=== PATIENT | female | born 1960 | race Hispanic/Latino ===

== ENCOUNTER 2017-10-16 12:50 | Inpatient (IN) | payer BC ==
[~2017-10-16] VITALS: Ht 172.7 cm; Wt 72.0 kg
[2017-10-16 13:05] LABS: BASOPHILS % (AUTO) 0.9 % (0.0-5.0); EOSINOPHILS % (AUTO) 1.1 % (0.0-8.0); HEMATOCRIT 22.9 % (36-48); LYMPHOCYTES % (AUTO) 14.4 % (21.0-51.0); MEAN CORPUSCULAR HEMOGLOBIN 39.7 pg (27.0-33.0); MEAN CORPUSCULAR HGB CONC 36.2 g/dL (32.0-36.0); MEAN CORPUSCULAR VOLUME 109.7 fL (79-99); MONOCYTES % (AUTO) 8.6 % (3.0-13.0); PLATELET COUNT (AUTO) 240 K/uL (130-400); RED BLOOD CELL COUNT(AUTO) 2.08 MIL/uL (4.00-5.50); RED CELL DISTRIBUTION WIDTH 16.1 % (11.0-15.5); WHITE BLOOD COUNT (AUTO) 10.5 K/uL (4.8-10.8)
[2017-10-16 13:13] LABS: CARBON DIOXIDE 23 mmol/L (21-32); CHLORIDE 99 mmol/L (101-111); CREATININE 1.6 mg/dL (0.5-1.5); GLOMERULAR FILTR. RATE CALC 35 mL/min (>60); GLUCOSE,RANDOM 225 mg/dL (70-105); POTASSIUM 3.6 mmol/L (3.5-5.1); SODIUM SERUM 132 mmol/L (136-145); UREA NITROGEN, BLOOD 12 mg/dL (7-18)
[2017-10-16 13:18] LABS: ALANINE AMINOTRANSFERASE 76 U/L (12-78); ALBUMIN 2.5 g/dL (3.5-5.0); ASPARTATE AMINOTRANSFERASE 136 U/L (10-37); BILIRUBIN,TOTAL 6.3 mg/dL (0.2-1.0); TOTAL PROTEIN, SERUM 6.4 g/dL (6.0-8.3)
[2017-10-16 13:32] LABS: AMMONIA < 10 umol/L (11-32)
[2017-10-16] MEDS ORDERED: CEFTRIAXONE SODIUM 2 GM VIAL ONE (13:37)
[2017-10-16] MEDS ORDERED: LACTULOSE 20 GM/30 ML UDCUP ONE ×2 (13:40→21:16)
[2017-10-16] MEDS ORDERED: SODIUM CHLORIDE 0.9% 100 ML IV ONE (13:40)
[2017-10-16 13:55] LABS: INR 1.66 (0.85-1.15); PARTIAL THROMBOPLASTIN TIME 28.5 SEC (26.3-35.5); PROTHROMBIN TIME 17.3 SEC (9.6-11.6)
[2017-10-16] MEDS ORDERED: ALBUMIN (HUMAN) 25% 100 ML IV ONE (14:03)
[2017-10-16 14:14] LABS: APPEARANCE,URINE Clear (CLEAR); BILIRUBIN,URINE Negative (NEGATIVE); COLOR,URINE Yellow (YELLOW); GLUCOSE, URINE (UA) Negative (NEGATIVE); KETONES,URINE Negative (NEGATIVE); LEUKOCYTE ESTERASE ,URINE Negative (NEGATIVE); NITRATE,URINE Negative (NEGATIVE); OCCULT BLOOD,URINE Negative (NEGATIVE); PH,URINE 6.5 (5.0-8.0); PROTEIN,URINE Negative (NEGATIVE); UROBILINOGEN,URINE 0.2 mg/dL (0.2-1.0)
[2017-10-16] MEDS ORDERED: SODIUM CHLORIDE 0.9% 1000ML 1,000 ML IV SCH (16:29)
[2017-10-16] MEDS ORDERED: MAG HYDROX/AL HYDROX/SIMETH ES 30 ML SUSP UDCUP PO PRN (16:30)
[2017-10-16] MEDS ORDERED: ONDANSETRON HCL 4 MG/2 ML VIAL IV PRN (16:30)
[2017-10-16] MEDS ORDERED: GUAIFENESIN-DM 200/20 MG 10 ML PO PRN (16:30)
[2017-10-16 17:30] VITALS: BP 117/63
[2017-10-16 19:10] VITALS: BP 105/60
[2017-10-16] MEDS ORDERED: FURO40TA5 PO (19:39)
[2017-10-16] MEDS ORDERED: ZOLP12.52 PO (19:39)
[2017-10-16] MEDS ORDERED: ERGO500014 PO (19:39)
[2017-10-16] MEDS ORDERED: PROP10TA10 PO (19:39)
[2017-10-16] MEDS ORDERED: POTA20PA32 PO (19:39)
[2017-10-16] MEDS ORDERED: ACET-66 PO (19:39)
[2017-10-16] MEDS ORDERED: SPIR100T3 PO (19:39)
[2017-10-16] MEDS ORDERED: PANT20TA12 PO (19:39)
[2017-10-16] MEDS ORDERED: FERR325T22 PO (19:39)
[2017-10-16] MEDS ORDERED: RIFA550T PO (19:39)
[2017-10-16] MEDS ORDERED: LACT10SO8 PO (19:39)
[2017-10-16] MEDS ORDERED: SODIUM CHLORIDE 0.9% 1000ML 1,000 ML IV ONE (21:17)
[2017-10-16 23:30] VITALS: BP 111/60
[2017-10-17] MEDS ORDERED: MORPHINE SULFATE 2 MG/ML 1ML SYG IVP PRN (02:30)
[2017-10-17] MEDS ORDERED: MORPHINE SULFATE 8 MG/ML VIAL ONE (02:31)
[2017-10-17 03:54] LABS: MEAN CORPUSCULAR HEMOGLOBIN 38.9 pg (27.0-33.0); MEAN CORPUSCULAR HGB CONC 35.5 g/dL (32.0-36.0); MEAN CORPUSCULAR VOLUME 109.3 fL (79-99); PLATELET COUNT (AUTO) 219 K/uL (130-400); RED BLOOD CELL COUNT(AUTO) 1.84 MIL/uL (4.00-5.50); RED CELL DISTRIBUTION WIDTH 16.1 % (11.0-15.5); WHITE BLOOD COUNT (AUTO) 8.4 K/uL (4.8-10.8)
[2017-10-17 03:56] VITALS: BP 102/54
[2017-10-17 04:04] LABS: HEMATOCRIT 20.1 % (36-48)
[2017-10-17 04:21] LABS: ALBUMIN 2.5 g/dL (3.5-5.0); CREATININE 1.4 mg/dL (0.5-1.5); POTASSIUM 3.2 mmol/L (3.5-5.1); THYROID STIMULATING HORMONE 3.25 uIU/mL (0.36-3.74); TOTAL PROTEIN, SERUM 5.8 g/dL (6.0-8.3)
[2017-10-17 04:30] LABS: HEMOGLOBIN A1C 3.6 % (4.0-6.0)
[2017-10-17] MEDS ORDERED: MEROPENEM 500MG+NS 50ML 50 ML IV SCH (06:00)
[2017-10-17] MEDS: MEROPENEM 500 MG VIAL IVP SCH ×3 (06:04→21:20)
[2017-10-17 08:00] VITALS: BP 106/52
[2017-10-17] MEDS ORDERED: PHYTONADIONE 10 MG/1 ML AMP SQ SCH (08:00)
[2017-10-17] MEDS ORDERED: ZOLPIDEM TARTRATE 5 MG TAB PO PRN (08:15)
[2017-10-17] MEDS: SPIRONOLACTONE 25 MG TAB PO SCH (09:00)
[2017-10-17] MEDS: POTASSIUM BICARB/CIT AC 25 MEQ TABLET.EFF PO SCH ×2 (09:00→21:16)
[2017-10-17] MEDS: PROPRANOLOL HCL 10 MG TAB PO SCH (09:00)
[2017-10-17] MEDS: LACTULOSE 20 GM/30 ML UDCUP PO SCH ×2 (09:00→21:16)
[2017-10-17] MEDS: RIFAXIMIN 550 MG TABLET PO SCH ×2 (09:00→21:16)
[2017-10-17] MEDS: FERROUS SULFATE 325 MG TABLET.DR PO SCH (09:00)
[2017-10-17] MEDS ORDERED: POTASSIUM CHLORIDE 25 MEQ PO SCH (09:00)
[2017-10-17] MEDS: FUROSEMIDE 40 MG TABLET PO SCH (09:00)
[2017-10-17] MEDS: FAMOTIDINE/PF 20 MG/2 ML VIAL IV SCH (10:07)
[2017-10-17] MEDS ORDERED: LIDOCAINE HCL-MPF 1% 2ML VIAL IVP PRN (11:00)
[2017-10-17] MEDS ORDERED: POTASSIUM CHLORIDE 20MEQ/100ML 100 ML IV PRN (11:00)
[2017-10-17] MEDS ORDERED: POTASSIUM CHLORIDE 10% ELIXIR 20 MEQ/15 ML UDCUP PO PRN (11:00)
[2017-10-17] MEDS ORDERED: POTASSIUM CHLORIDE 20 MEQ ERTAB PO PRN (11:00)
[2017-10-17 11:49] VITALS: BP 117/56
[2017-10-17] MEDS ORDERED: SODIUM CHLORIDE 0.9% 250 ML IV ONE (17:03)
[2017-10-17 19:00] VITALS: BP 112/69
[2017-10-18] VITALS: BP 122/63
[2017-10-18 04:00] VITALS: BP 118/52
[2017-10-18 04:05] LABS: HEMATOCRIT 22.8 % (36-48); MEAN CORPUSCULAR HEMOGLOBIN 38.9 pg (27.0-33.0); MEAN CORPUSCULAR HGB CONC 37.3 g/dL (32.0-36.0); MEAN CORPUSCULAR VOLUME 104.2 fL (79-99); PLATELET COUNT (AUTO) 188 K/uL (130-400); RED BLOOD CELL COUNT(AUTO) 2.19 MIL/uL (4.00-5.50); RED CELL DISTRIBUTION WIDTH 20.1 % (11.0-15.5); WHITE BLOOD COUNT (AUTO) 9.2 K/uL (4.8-10.8)
[2017-10-18 04:15] LABS: INR 1.74 (0.85-1.15); PARTIAL THROMBOPLASTIN TIME 31.5 SEC (26.3-35.5); PROTHROMBIN TIME 18.1 SEC (9.6-11.6)
[2017-10-18 04:16] LABS: CREATININE 1.4 mg/dL (0.5-1.5); POTASSIUM 3.6 mmol/L (3.5-5.1)
[2017-10-18] MEDS: MEROPENEM 500 MG VIAL IVP SCH (06:55)
[2017-10-18] MEDS ORDERED: CEFTRIAXONE 1GM/D5W 50ML 50 ML IV SCH (08:00)
[2017-10-18] MEDS: CEFTRIAXONE SODIUM 1 GM IVP SCH (08:27)
[2017-10-18] MEDS: PROPRANOLOL HCL 10 MG TAB PO SCH (08:28)
[2017-10-18] MEDS: POTASSIUM BICARB/CIT AC 25 MEQ TABLET.EFF PO SCH ×2 (08:28→20:57)
[2017-10-18] MEDS: RIFAXIMIN 550 MG TABLET PO SCH ×2 (08:28→20:56)
[2017-10-18] MEDS: FERROUS SULFATE 325 MG TABLET.DR PO SCH (08:28)
[2017-10-18] MEDS: LACTULOSE 20 GM/30 ML UDCUP PO SCH ×2 (08:28→20:57)
[2017-10-18] MEDS: SPIRONOLACTONE 25 MG TAB PO SCH (08:28)
[2017-10-18] MEDS: FAMOTIDINE/PF 20 MG/2 ML VIAL IV SCH (08:28)
[2017-10-18 08:29] VITALS: BP 108/50
[2017-10-18 11:40] VITALS: BP 106/70
[2017-10-18 15:30] VITALS: BP 117/78
[2017-10-18 19:00] VITALS: BP 128/71
[2017-10-19] VITALS: BP 122/57
[2017-10-19 04:00] VITALS: BP 137/73
[2017-10-19 04:05] LABS: MEAN CORPUSCULAR HEMOGLOBIN 37.2 pg (27.0-33.0); MEAN CORPUSCULAR HGB CONC 34.7 g/dL (32.0-36.0); MEAN CORPUSCULAR VOLUME 107.1 fL (79-99); PLATELET COUNT (AUTO) 207 K/uL (130-400); RED BLOOD CELL COUNT(AUTO) 2.71 MIL/uL (4.00-5.50); RED CELL DISTRIBUTION WIDTH 20.3 % (11.0-15.5); WHITE BLOOD COUNT (AUTO) 9.8 K/uL (4.8-10.8)
[2017-10-19 04:21] LABS: CREATININE 1.3 mg/dL (0.5-1.5); POTASSIUM 3.8 mmol/L (3.5-5.1)
[2017-10-19 07:42] VITALS: BP 130/71
[2017-10-19] MEDS: FAMOTIDINE/PF 20 MG/2 ML VIAL IV SCH (10:48)
[2017-10-19] MEDS: FERROUS SULFATE 325 MG TABLET.DR PO SCH (10:48)
[2017-10-19] MEDS: LACTULOSE 20 GM/30 ML UDCUP PO SCH ×2 (10:48→22:53)
[2017-10-19] MEDS: CEFTRIAXONE SODIUM 1 GM IVP SCH (10:48)
[2017-10-19] MEDS: POTASSIUM BICARB/CIT AC 25 MEQ TABLET.EFF PO SCH ×2 (10:48→22:53)
[2017-10-19] MEDS: RIFAXIMIN 550 MG TABLET PO SCH ×2 (10:48→22:53)
[2017-10-19] MEDS: PROPRANOLOL HCL 10 MG TAB PO SCH (10:49)
[2017-10-19] MEDS: SPIRONOLACTONE 25 MG TAB PO SCH (10:49)
[2017-10-19] MEDS: FUROSEMIDE 40 MG TABLET PO SCH (10:50)
[2017-10-19 11:11] VITALS: BP 98/50
[2017-10-19 16:02] VITALS: BP 118/65
[2017-10-19 20:00] VITALS: BP 123/66
[2017-10-20] VITALS (7 sets, daily range): BP systolic 96–142; BP diastolic 51–73
[2017-10-20 03:43] LABS: HEMATOCRIT 24.4 % (36-48); MEAN CORPUSCULAR HEMOGLOBIN 37.9 pg (27.0-33.0); MEAN CORPUSCULAR HGB CONC 35.7 g/dL (32.0-36.0); MEAN CORPUSCULAR VOLUME 106.1 fL (79-99); PLATELET COUNT (AUTO) 195 K/uL (130-400); RED CELL DISTRIBUTION WIDTH 19.5 % (11.0-15.5); WHITE BLOOD COUNT (AUTO) 9.6 K/uL (4.8-10.8)
[2017-10-20 04:06] LABS: ALBUMIN 2.4 g/dL (3.5-5.0); BILIRUBIN,DIRECT 2.1 mg/dL (0.0-0.3); BILIRUBIN,TOTAL 5.6 mg/dL (0.2-1.0); CREATININE 1.2 mg/dL (0.5-1.5); TOTAL PROTEIN, SERUM 5.9 g/dL (6.0-8.3)
[2017-10-20] MEDS ORDERED: SODIUM CHLORIDE 0.9% 1000ML 1,000 ML IV SCH (07:20)
[2017-10-20 08:09] LABS: APPEARANCE,URINE Clear (CLEAR); BILIRUBIN,URINE Negative (NEGATIVE); COLOR,URINE Yellow (YELLOW); GLUCOSE, URINE (UA) Negative (NEGATIVE); KETONES,URINE Negative (NEGATIVE); LEUKOCYTE ESTERASE ,URINE Negative (NEGATIVE); NITRATE,URINE Negative (NEGATIVE); OCCULT BLOOD,URINE Negative (NEGATIVE); PROTEIN,URINE Negative (NEGATIVE)
[2017-10-20 08:35] LABS: % IRON SATURATION 94.1 % (22-44); FERRITIN 1740 ng/mL (15-150); IRON, SERUM 113 mcg/dL (50-170); TOTAL IRON BINDING CAPACITY 120 mcg/dL (250-450)
[2017-10-20 08:45] LABS: RETICULOCYTE % (AUTO) 2.28 % (0.42-2.23)
[2017-10-20] MEDS: CEFTRIAXONE SODIUM 1 GM IVP SCH (09:37)
[2017-10-20] MEDS: THIAMINE HCL 100 MG/ML 2ML VIAL IVP SCH (09:37)
[2017-10-20] MEDS: LACTULOSE 20 GM/30 ML UDCUP PO SCH ×3 (09:37→21:08)
[2017-10-20] MEDS: SPIRONOLACTONE 25 MG TAB PO SCH (09:38)
[2017-10-20] MEDS: PROPRANOLOL HCL 10 MG TAB PO SCH (09:38)
[2017-10-20] MEDS: FAMOTIDINE/PF 20 MG/2 ML VIAL IV SCH (09:38)
[2017-10-20] MEDS: FUROSEMIDE 40 MG TABLET PO SCH (09:38)
[2017-10-20] MEDS: RIFAXIMIN 550 MG TABLET PO SCH ×2 (09:38→21:08)
[2017-10-20] MEDS: FERROUS SULFATE 325 MG TABLET.DR PO SCH (09:38)
[2017-10-20] MEDS: POTASSIUM BICARB/CIT AC 25 MEQ TABLET.EFF PO SCH ×2 (09:38→21:08)
[2017-10-21 04:00] VITALS: BP 126/75
[2017-10-21 07:47] VITALS: BP 123/79
[2017-10-21] MEDS ORDERED: GADOBENATE DIMEGLUMINE 20 ML IV ONE (09:11)
[2017-10-21] MEDS: POTASSIUM BICARB/CIT AC 25 MEQ TABLET.EFF PO SCH ×2 (10:50→20:21)
[2017-10-21] MEDS: LACTULOSE 20 GM/30 ML UDCUP PO SCH ×2 (10:50→20:21)
[2017-10-21] MEDS: RIFAXIMIN 550 MG TABLET PO SCH ×2 (10:51→20:21)
[2017-10-21] MEDS: FERROUS SULFATE 325 MG TABLET.DR PO SCH (10:51)
[2017-10-21] MEDS: SPIRONOLACTONE 25 MG TAB PO SCH (10:51)
[2017-10-21] MEDS: FUROSEMIDE 40 MG TABLET PO SCH (10:51)
[2017-10-21] MEDS: PROPRANOLOL HCL 10 MG TAB PO SCH (10:51)
[2017-10-21] MEDS: FAMOTIDINE/PF 20 MG/2 ML VIAL IV SCH (10:52)
[2017-10-21] MEDS: THIAMINE HCL 100 MG/ML 2ML VIAL IVP SCH (10:52)
[2017-10-21 11:29] VITALS: BP 137/77
[2017-10-21 15:53] VITALS: BP 110/65
[2017-10-21 20:20] VITALS: BP 123/71
[2017-10-21 23:40] VITALS: BP 126/75
[2017-10-22 04:21] VITALS: BP 118/74
[2017-10-22 08:29] VITALS: BP 111/65
[2017-10-22] MEDS: LACTULOSE 20 GM/30 ML UDCUP PO SCH (09:11)
[2017-10-22] MEDS: RIFAXIMIN 550 MG TABLET PO SCH (09:11)
[2017-10-22] MEDS: POTASSIUM BICARB/CIT AC 25 MEQ TABLET.EFF PO SCH (09:11)
[2017-10-22] MEDS: THIAMINE HCL 100 MG/ML 2ML VIAL IVP SCH (09:12)
[2017-10-22] MEDS: FERROUS SULFATE 325 MG TABLET.DR PO SCH (09:12)
[2017-10-22] MEDS: FUROSEMIDE 40 MG TABLET PO SCH (09:12)
[2017-10-22] MEDS: SPIRONOLACTONE 25 MG TAB PO SCH (09:12)
[2017-10-22] MEDS: PROPRANOLOL HCL 10 MG TAB PO SCH (09:13)
[2017-10-22] MEDS: FAMOTIDINE/PF 20 MG/2 ML VIAL IV SCH (09:13)
== END 2017-10-22 12:00 | disposition home or self-care (01) | DRG 432 ==
LOC: EDH 12:50 → OBSVTOIN 16:29 → EDHIP 16:29 → 3AH 17:36
PROVIDERS: ADMIT Family Medicine; ATTEND Family Medicine
PROC: 30233N1 Transfusion of Nonautologous Red Blood Cells into Peripheral Vein, Percutaneous Approach (ICD-10-PCS; principal; 2017-10-16)
DX: K74.60 Unspecified cirrhosis of liver (principal); G93.40 Encephalopathy, unspecified; N17.9 Acute kidney failure, unspecified; R18.8 Other ascites; E44.0 Moderate protein-calorie malnutrition; K80.20 Calculus of gallbladder without cholecystitis without obstruction; D64.9 Anemia, unspecified; M79.7 Fibromyalgia; Z90.710 Acquired absence of both cervix and uterus; Z28.21 Immunization not carried out because of patient refusal
CPT/HCPCS: 36415; 36430; 70450; 70553; 71045; 76705; 78226; 80048; 80053; 80076; 81003; 82140; 82607; 82728; 82746; 82948; 83036; 83605; 84443; 84484; 85025; 85027; 85610; 85730; 86850; 86900; 86901; 86922; 87040; 93005; 97039; A4218; A9537; A9577; J0696; J2185; J2270; J3411; J3430; J3490; J7030; P9016; P9046